=== PATIENT | male | born 1990 | race African-American/Black ===

== ENCOUNTER 2016-07-29 13:34 | Emergency (ER) | payer MEDICAID ==
[~2016-07-29] VITALS: Ht 182.9 cm; Wt 69.4 kg
[2016-07-29 14:12] LABS: Basophils # (auto) 0 uL; Basophils % (auto) 0.4 % (0.0-2.0); Eosinophils # (auto) 0 uL; Eosinophils % (auto) 0.5 % (0.0-7.0); Hematocrit 45.1 % (41.0-53.0); Hemoglobin 15.5 g/dL (13.5-17.5); Lymphocytes % (auto) 15.5 % (10.0-50.0); Mean Corpuscular Hemoglobin 31.6 pg (28.0-32.0); Mean Corpuscular Hgb Conc. 34.4 g/dL (32.0-36.0); Mean Corpuscular Volume 92.1 fL (80.0-100.0); Mean Platelet Volume 7.9 fL (7.4-10.4); Monocytes # (auto) 0.4 uL; Neutrophils # (auto) 5.3 uL; Neutrophils % (auto) 77.6 % (37.0-80.0); Platelet Count (auto) 300 10^3/uL (140-450); Red Cell Distribution Width 13.1 % (11.6-16.0); White Blood Cell 6.8 10^3/uL (4.4-10.8)
[2016-07-29 15:07] LABS: Salicylate < 1.7 mg/dL (2.8-20.0)
[2016-07-29 15:18] LABS: Acetaminophen < 2.0 ug/mL (10-30)
[2016-07-29 15:50] LABS: Albumin 4.6 g/dL (3.4-5.0); BUN/Creatinine Ratio 20.5; Bilirubin, Total 0.6 mg/dL (0.2-1.0); Calcium 9.3 mg/dL (8.5-10.1); Potassium 3.9 mmol/L (3.5-5.1); Total Protein 8.3 g/dL (6.4-8.2)
[2016-07-30] MEDS ORDERED: ESCI20TA51 (09:11)
[2016-07-30] MEDS ORDERED: CITALOPRAM HYDROBR 20 MG TAB PO SCH (10:00)
[2016-07-30 19:05] VITALS: BP 125/70
== END 2016-07-30 19:12 | disposition short-term general hospital (02) ==
LOC: ER 13:34
DX: F31.9 Bipolar disorder, unspecified (principal); R45.851 Suicidal ideations; F41.9 Anxiety disorder, unspecified
CPT/HCPCS: 36415; 80053; 80307; 80329; 85025